=== PATIENT | female | born 1960 | race Hispanic/Latino ===

== ENCOUNTER 2018-02-23 09:33 | Observation (INO) | payer BC ==
[2018-02-23 09:39] VITALS: BMI 30.3
[2018-02-23] MEDS ORDERED: Nitroglycerin 2% Ointment Foilpak UD TOP STA (09:48)
--- NOTE | 2018-02-23 09:54 | ED PDOC ---
Arrival/HPI - General Chief Complaint: Chest Pain Time Seen by Provider: 02/23/18 09:39 Historian: Patient - History of Present Illness Narrative History of Present Illness (Text): 02/23/18 09:53 A 57 year old female, whose past medical history includes diabetes, hypertension , hyperlipidemia, CAD with stents (Dr. Arellano 2 years ago), presents to the emergency department complaining of intermittent chest pain for three days. Patient notes she is currently pain free. Reports to taking Aspirin last night. Patient saw her PMD in [facility], who sent her to the emergency department. Reports she quit smoking and drinking 4 years ago. Patient also reports shortness of breath, diaphoresis, nausea and dizziness but denies any other complaints at this time. Time/Duration: Other (3 days) Symptom Onset: Sudden Symptom Course: Unchanged Activities at Onset: Rest Context: Home Associated Symptoms (Text): 02/23/18 10:36 Three-day history of intermittent chest pain described as a heaviness with radiation to the left upper extremity and back. She is currently pain-free. Last on the order of hours. Seen by her PMD this morning and directed to the emergency department. History of coronary artery disease and stent placement. Also complained of diaphoresis nausea dyspnea and dizziness. Past Medical History - Provider Review Nursing Documentation Reviewed: Yes - Tetanus Immunization Tetanus Immunization: Unknown - Reproductive Menopause: Yes - Cardiac Hx Cardiac Disorders: Yes Hx Hypertension: Yes - Pulmonary Hx Respiratory Disorders: Yes Hx Bronchitis: Yes Hx Pneumonia: Yes - Neurological Hx Neurological Disorder: No - HEENT Hx HEENT Disorder: Yes Other/Comment: WEARS GLASSES - Renal Hx Renal Disorder: No - Endocrine/Metabolic Hx Endocrine Disorders: Yes Hx Diabetes Mellitus Type 2: Yes - Hematological/Oncological Hx Blood Disorders: No - Integumentary Hx Dermatological Disorder: No - Musculoskeletal/Rheumatological Hx Musculoskeletal Disorders: Yes Hx Arthritis: Yes (hands, joint pain) Hx Falls: No Other/Comment: TORN LIGAMENT LEFT KNEE - Gastrointestinal Hx Gastrointestinal Disorders: Yes (COLON RESECTION) Hx Crohn's Disease: Yes Hx Diverticulitis: Yes - Genitourinary/Gynecological Hx Genitourinary Disorders: Yes (1 MISCARRIAGE,1 2 CHILDREN, HYSTERECTOMY,C/S X 2) Other/Comment: hx of endometriosis that traveled outside the uterus, pt had a hysterectomy - Psychiatric Hx Psychophysiologic Disorder: No Hx Depression: No Hx Emotional Abuse: No Hx Physical Abuse: No Hx Substance Use: No - Surgical History Hx Cardiac Catheterization: Yes (2 STENTS 5-04-04 AND 16) Hx Coronary Stent: Yes (2) Hx Hysterectomy: Yes Hx Musculoskeletal Surgery: Yes (LEFT KNEE TORN LIGAMENT) - Anesthesia Hx Anesthesia: Yes Hx Anesthesia Reactions: No Hx Malignant Hyperthermia: No - Suicidal Assessment Feels Threatened In Home Enviroment: No Family/Social History - Physician Review Nursing Documentation Reviewed: Yes Family/Social History: No Known Family HX Smoking Status: Former Smoker Hx Alcohol Use: No Hx Substance Use: No Hx Substance Use Treatment: No Allergies/Home Meds Allergies/Adverse Reactions: Allergies black pepper Allergy (Intermediate, Uncoded 02/23/18 09:39) SWELLING Home Medications: Home Meds Medication Instructions Recorded Confirmed Aspirin [Aspir 81] 81 mg PO DAILY 03/14/13 02/23/18 Atorvastatin [Lipitor] 20 mg PO HS 03/22/15 02/23/18 Cholecalciferol (Vitamin D3) 600 mg PO DAILY 03/22/15 02/23/18 [Vitamin D3] Mesalamine [Asacol HD 800mg] 800 mg PO BID 03/22/15 02/23/18 Metformin HCl 1,000 mg PO BID 03/22/15 02/23/18 Metoprolol Succinate [Toprol XL] 25 mg PO DAILY 03/22/15 02/23/18 Pantoprazole [Protonix EC Tab] 40 mg PO DAILY 03/22/15 02/23/18 Pregabalin [Lyrica] 75 mg PO BID 03/22/15 02/23/18 GlipiZIDE [Glipizide] 5 mg PO DAILY 02/23/18 02/23/18 glyBURIDE [Micronase] 2.5 mg PO DAILY 02/23/18 02/23/18 traMADol [Ultram] 50 mg PO TID 02/23/18 02/23/18 Review of Systems - Physician Review All systems were reviewed & negative as marked: Yes - Review of Systems Constitutional: absent: Fatigue, Fevers Respiratory: SOB. absent: Cough Cardiovascular: Chest Pain. absent: Palpitations, Syncope Gastrointestinal: Nausea. absent: Abdominal Pain, Vomiting Neurological: Dizziness. absent: Headache, Focal Weakness Endocrine: Diaphoresis Physical Exam Vital Signs Reviewed: Yes Vital Signs Temp Pulse Resp BP Pulse Ox 02/23/18 13:44 87 18 149/83 97 02/23/18 10:26 98.2 F 79 18 162/87 H 99 Temperature: Afebrile Blood Pressure: Hypertensive Pulse: Regular Respiratory Rate: Normal Appearance: Positive for: Well-Appearing, Non-Toxic, Comfortable Pain Distress: None Mental Status: Positive for: Alert and Oriented X 3 - Systems Exam Head: Present: Atraumatic, Normocephalic Pupils: Present: PERRL Extroacular Muscles: Present: EOMI Conjunctiva: Present: Normal Ears: Present: NORMAL TM, Normal Canal. No: Erythema Mouth: Present: Moist Mucous Membranes Pharnyx: No: ERYTHEMA, EXUDATE, TONSILS ENLARGED Neck: Present: Normal Range of Motion Respiratory/Chest: Present: Clear to Auscultation, Good Air Exchange. No: Respiratory Distress, Accessory Muscle Use, Tender to Palpation Cardiovascular: Present: Regular Rate and Rhythm, Normal S1, S2. No: Murmurs Abdomen: No: Tenderness, Distention, Peritoneal Signs Back: Present: Normal Inspection Upper Extremity: Present: Normal Inspection. No: Cyanosis, Edema Lower Extremity: Present: Normal Inspection. No: Edema Neurological: Present: GCS=15, CN II-XII Intact, Speech Normal, Motor Func Grossly Intact Skin: Present: Warm, Dry, Normal Color. No: Rashes Psychiatric: Present: Alert, Oriented x 3, Normal Insight, Normal Concentration Medical Decision Making ED Course and Treatment: 02/23/18 09:52 Impression: A 57 year old female with chest pain, currently resolved. Plan: -- EKG -- Chest X-ray -- labs - -Nitroglycerin -- Reassess and disposition Prior Visits: Notes and results from previous visits were reviewed. Patient was last seen in the emergency department on 08/13/15 for evaluation of LLQ pain. Progress Notes: 02/23/18 10:29 Chest X-ray- Creator : Diaz Sahni MD IMPRESSION: No active disease. 02/23/18 10:38 EKG shows normal sinus rhythm rate approximately [address] or T-wave changes. 02/23/18 13:47 Dr. Julio saw the patient in the emergency department. - Lab Interpretations Lab Results: 02/23/18 09:45 02/23/18 09:45 Lab Results 02/23/18 09:45: Sodium 136, Potassium 4.4, Chloride 102, Carbon Dioxide 25, Anion Gap 13, BUN 16, Creatinine 0.5 L, Est GFR ( Amer) > 60, Est GFR ( Non-Af Amer) > 60, Random Glucose 283 H, Calcium 9.7, Total Bilirubin 0.7, AST 50 H, ALT 75 H, Alkaline Phosphatase 87, Lactate Dehydrogenase 467, Total Creatine Kinase 47, Troponin I < 0.01, NT-Pro-B Natriuret Pep 68.0, Total Protein 7.0, Albumin 4.0, Globulin 3.0, Albumin/Globulin Ratio 1.3 02/23/18 09:45: PT 10.6, INR 0.92 L, APTT 23.2 L 02/23/18 09:45: WBC 6.8, RBC 4.07, Hgb 14.9, Hct 36.5, MCV 89.7, MCH 36.6 H, MCHC 40.8 H, RDW 12.9, Plt Count 177, MPV 11.2 H, Gran % 61.7, Lymph % (Auto) 31.9, [place] % (Auto) 4.7, Eos % (Auto) 1.3 L, Baso % (Auto) 0.4, Gran # 4.22, Lymph # (Auto) 2.2, [place] # (Auto) 0.3, Eos # (Auto) 0.1, Baso # (Auto) 0.03 I have reviewed the lab results: Yes - RAD Interpretation Radiology Orders: 02/23/18 09:48 CHEST PORTABLE [RAD] Stat - EKG Interpretation Interpreted by ED Physician: Yes Type: 12 lead EKG - Medication Orders Current Medication Orders: Aspirin (Ecotrin) 81 mg PO DAILY MANJULA Atorvastatin Calcium (Lipitor) 20 mg PO HS MANJULA Glyburide (Micronase) 2.5 mg PO DAILY MANJULA Mesalamine (Asacol Hd 800mg) 800 mg PO BID MANJULA Metformin HCl (Glucophage) 1,000 mg PO BID MANJULA Metoprolol Succinate (Toprol Xl) 25 mg PO DAILY MANJULA Pantoprazole Sodium (Protonix Ec Tab) 40 mg PO DAILY MANJULA Pregabalin (Lyrica) 75 mg PO BID MANJULA Tramadol HCl (Ultram) 50 mg PO TID PRN PRN Reason: Pain, moderate (4-7) Vitamin D (Vitamin D 400 Intl Units Tab) 600 intlu PO DAILY MANJULA Discontinued Medications Nitroglycerin (Nitro-Bid 2% Oint) 1 ea TOP STAT STA Stop: 02/23/18 09:49 Last Admin: 02/23/18 10:22 Dose: 1 ea - Scribe Statement The provider has reviewed the documentation as recorded by the Scribe [place] Provider Scribe Attestation: All medical record entries made by the Scribe were at my direction and personally dictated by me. I have reviewed the chart and agree that the record accurately reflects my personal performance of the history, physical exam, medical decision making, and the department course for this patient. I have also personally directed, reviewed, and agree with the discharge instructions and disposition. Disposition/Present on Arrival - Present on Arrival Any Indicators Present on Arrival: No History of DVT/PE: No History of Uncontrolled Diabetes: No Urinary Catheter: No History of Decub. Ulcer: No History Surgical Site Infection Following: None - Disposition Have Diagnosis and Disposition been Completed?: Yes Diagnosis: Chest pain Disposition: HOSPITALIZED Disposition Time: 11:10 Patient Plan: Observation, Telemetry Patient Problems: Current Active Problems Problem Status Onset Chest pain Acute Condition: GOOD
[2018-02-23 09:59] LABS: BASO # 0.03 K/mm3 (0.0-2.0); BASO % 0.4 % (0.0-3.0); EOS # 0.1 (0.0-0.7); EOS % 1.3 % (1.5-5.0); GRAN # 4.22 (1.4-6.5); GRAN % 61.7 % (50.0-68.0); HEMOGLOBIN 14.9 g/dL (12.0-16.0); LYMPH # 2.2 (1.2-3.4); LYMPH % 31.9 % (22.0-35.0); MEAN CELL VOLUME 89.7 fl (80.0-105.0); MEAN CORPUSCULAR HEMOGLOBIN 36.6 pg (25.0-35.0); MEAN CORPUSCULAR HGB CONC 40.8 g/dl (31.0-37.0); MEAN PLATELET VOLUME 11.2 fl (7.0-11.0); MONO # 0.3 (0.1-0.6); MONO % 4.7 % (1.0-6.0); RBC 4.07 10^6/uL (3.5-6.1); RED CELL DISTRIBUTION WIDTH 12.9 % (11.5-14.5); WHITE BLOOD COUNT 6.8 10^3/ul (4.5-11.0)
[2018-02-23 10:09] LABS: INR 0.92 (0.93-1.08); PARTIAL THROMBOPLASTIN TIME 23.2 Seconds (25.1-36.5); PROTHROMBIN TIME 10.6 SECONDS (9.4-12.5)
[2018-02-23 10:11] LABS: ALB/GLOB RATIO 1.3 (1.1-1.8); ALT/SGPT 75 U/L (7-56); AST/SGOT 50 U/L (14-36); BLOOD UREA NITROGEN 16 mg/dL (7-21); CALCIUM 9.7 mg/dL (8.4-10.5); GFR AFRICAN-AMERICAN > 60; GFR NON-AFRICAN AMERICAN > 60
[2018-02-23 10:23] LABS: TROPONIN I < 0.01 ng/mL
--- NOTE | 2018-02-23 10:28 | RAD ---
HISTORY: cp COMPARISON: 08/13/2015 FINDINGS: LUNGS: No active pulmonary disease. PLEURA: No significant pleural effusion identified, no pneumothorax apparent. CARDIOVASCULAR: Normal. OSSEOUS STRUCTURES: No significant abnormalities. VISUALIZED UPPER ABDOMEN: Normal. OTHER FINDINGS: None. IMPRESSION: No active disease.
--- NOTE | 2018-02-23 13:59 | HP ---
HISTORY OF PRESENT ILLNESS: I was called down to the emergency room to admit Jodi Hunt into observation. She came in to the emergency room complaining of intermittent chest pain for 3 days. At this time, she is pain free. She also said the left arm had been very cold and now it is better again. She is a 57-year-old female with chest pain for 3 days, but now it is gone. She had left arm that was cold, but now it is better. She has a past medical history of diabetes, hypertension, high cholesterol, CAD with stents from Dr. Arellano 2 years ago. She took an aspirin last night and she was sent here by a medical doctor. There is no shortness of breath. No diaphoresis. No nausea. No dizziness. At this time, when I am seeing her now, she feels back to normal. There was a sudden change when it happened. She also said there was heaviness in her chest radiating to the left upper arm and back, but now that is gone. She had bronchitis and pneumonias in the past. She has hypertension. She wears glasses. She has diabetes. She has arthritis in the hands and knees. She had a torn ligament in the left knee. She had colon resection. She had Crohn's disease, diverticulitis in the past. She had a miscarriage, 1 , 2 children, hysterectomy, history of endometriosis. She had a hysterectomy. Two coronary stents, left knee torn ligament. FAMILY HISTORY: No known family history. SOCIAL HISTORY: A former smoker. No alcohol. No drugs. ALLERGIES: SHE IS ALLERGIC TO BLACK PEPPER. MEDICATIONS: She takes aspirin, Lipitor, vitamin D3, Asacol, metformin, Toprol, Protonix, Lyrica, glipizide, Micronase and Ultram. REVIEW OF SYSTEMS: No acute changes at that time. No fatigue. No fevers at this time. She was short of breath, but not now. No cough. There was chest pain, left sided and pressure, but not now. No palpitations. Not dizzy. There was some nauseousness, but not now that faded. She has no abdominal pain, constipation or vomiting or diarrhea. There was dizziness, but not now. There was no headache. No focal weakness at all pass. She did have some sweating when this happened 2 days ago, but not anymore. PHYSICAL EXAMINATION: VITAL SIGNS: She has a 98.2 temp, 79 pulse, 18 respiratory rate, 162/87 blood pressure, 99% O2 sat on room air. GENERAL: She is comfortable, well appearing, nontoxic, comfortable in bed, telling me her story. She is alert and oriented x3. HEENT: Head is atraumatic, normocephalic. Extraocular muscles are intact. Pupils are equal, reactive to light. Throat is moist. The canals of the ears were normal. Mucous membranes are moist. NECK: Supple. LUNGS: Clear to auscultation. HEART: Regular rate. Normal S1 and S2. ABDOMEN: Soft, nontender. Positive bowel sounds. EXTREMITIES: Have no edema. NEUROLOGIC: GCS of 15. Cranial nerves II through XII grossly intact. Speech is normal. SKIN: Warm and dry. PSYCHIATRIC: Alert and oriented x3. LYMPHATICS: No palpable lymphadenopathy or thyroid that is not midline. LABORATORY DATA: She had multiple tests. She had a 136 sodium, potassium 4.4, BUN 16, creatinine 0.5, GFR is greater than 60, sugar is 283, calcium is 9.7, total bili is 0.7, AST is 50, ALT is 75, alk phos is 87, lactate dehydrogenase is 467, total creatine kinase is 47, troponin I is less than 0.01, BNP is 68, total protein 7, albumin is 4. White count is 6.8, hemoglobin 14.9, hematocrit 36.5, platelets are 177. INR is 0.92. The chest x-ray was normal. IMPRESSION: She will have a consult with Dr. Lang, the supervisor marble. She will be put back on her medications. We will check her troponins x2 more. We will get her into observation. Jdoi Hunt who is here for chest pain and left arm change in temperature and I ordered ultrasound and arterial Dopplers of the left arm. Rodney Julio DO
[2018-02-23] MEDS: Mesalamine 800 mg DR Tab PO SCH (17:41)
--- NOTE | 2018-02-23 17:43 | US ---
PROCEDURE: Upper extremity FIONA/PVR exam HISTORY: Peripheral vascular disease with pain. Diabetes. Previous smoker PHYSICIAN(S): Ryan Shane MD. FINDINGS: The resting WBI's are normal: right, 1.09and left, 1.15. The upper arm, forearm, and wrist PVR waveforms are normal and symmetric. No significant segmental gradients are demonstrated. . IMPRESSION: 1. Normal WBI and PVR examination at rest.
--- NOTE | 2018-02-23 17:44 | US ---
PROCEDURE: Left upper extremity venous ultrasound HISTORY: Arm pain and swelling. Evaluate for deep venous thrombosis. PHYSICIAN(S): Ryan Shane MD. FINDINGS: The visualized leftinternal jugular vein is sonographically normal and compressible. No evidence of obstruction or thrombus is seen. The visualized segments of the left subclavian vein are patent with normal waveforms. No sonographic evidence of obstruction or thrombosis is seen. The visualized deep venous system of the proximal leftupper extremity is sonographically normal and compressible. IMPRESSION: 1. No sonographic evidence for deep venous thrombosis in the visualized segments of the left upper extremity.
[2018-02-23 18:58] VITALS: O2SAT 95
--- NOTE | 2018-02-23 19:20 | CARD ---
APPROVED REPORT EKG Measurement Heart [id number] CT [id number] <Conclusion> Normal sinus rhythm Minimal voltage criteria for LVH, may be normal variant ST abnormality, possible digitalis effect Abnormal ECG
[2018-02-23] MEDS ORDERED: Pneumococcal 23-Valent Vaccine IM ONE (21:24)
[2018-02-24 06:11] LABS: HEMOGLOBIN 13.5 g/dL (12.0-16.0); MEAN CORPUSCULAR HGB CONC 35.5 g/dl (31.0-37.0); MEAN PLATELET VOLUME 11.1 fl (7.0-11.0); RBC 4.22 10^6/uL (3.5-6.1); RED CELL DISTRIBUTION WIDTH 12.9 % (11.5-14.5); WHITE BLOOD COUNT 6.7 10^3/ul (4.5-11.0)
[2018-02-24 06:44] VITALS: RESP 18
[2018-02-24 06:56] LABS: ALB/GLOB RATIO 1.1 (1.1-1.8); ALBUMIN 3.5 g/dL (3.0-4.8); ALT/SGPT 69 U/L (7-56); AST/SGOT 57 U/L (14-36); BLOOD UREA NITROGEN 15 mg/dL (7-21); CALCIUM 9.1 mg/dL (8.4-10.5); GFR AFRICAN-AMERICAN > 60; GFR NON-AFRICAN AMERICAN > 60
[2018-02-24] MEDS: Mesalamine 800 mg DR Tab PO SCH ×2 (09:41→09:43)
[2018-02-24] MEDS ORDERED: Metoprolol Succinate 25 mg XL Tab PO SCH (10:00)
[2018-02-24] MEDS ORDERED: Cholecalciferol 400 Intl Units Tab PO SCH (10:00)
[2018-02-24] MEDS ORDERED: Pantoprazole 40 mg EC Tab PO SCH (10:00)
[2018-02-24 12:40] VITALS: BP 139/85; PULSE 72; TEMP 98.5
--- NOTE | 2018-02-25 00:27 | CON ---
DATE: 02/24/2018 REASON FOR CONSULTATION: Chest pain. REQUESTING PHYSICIAN: Dr. Julio. HISTORY: This is a 57-year-old woman with known coronary disease status post prior multivessel PCI, admitted with chest and left arm discomfort. She states that her left arm pain begins at first and it is fairly intense. She cannot identify any precipitating or relieving factors. This is also associated with retrosternal chest discomfort with some dyspnea. Initial cardiac enzymes were negative. An electrocardiogram was unremarkable. She has known coronary disease and underwent catheterization and PCI for LAD and left circumflex artery in 2012. She has not had a recent followup stress test performed. She does have a history of hypertension, diabetes and hyperlipidemia. She also has a history of chronic Crohn disease and diverticulitis in the past. She has undergone prior hysterectomy. MEDICATIONS: Her current medications include mesalamine, Ecotrin, Glucophage, Lipitor, glyburide, Protonix, metoprolol and Ultram p.r.n. ALLERGIES : NO DRUG ALLERGIES NOTED. SOCIAL HISTORY: She is a former smoker. She denies alcohol use. FAMILY HISTORY: Both parents were from age-related illness. REVIEW OF SYSTEMS: A 10-point review of systems was unremarkable. PHYSICAL EXAMINATION: GENERAL: She is a middle-aged woman, appears somewhat anxious. VITAL SIGNS: Her blood pressure is 122/78 with pulse of 80 in sinus, respirations 16. She is afebrile. HEENT: Normocephalic, atraumatic. NECK: Supple. No JVD noted. CHEST: Few scattered rhonchi heard. HEART: PMI displaced laterally. No pathological gallops noted. ABDOMEN: Soft and nontender with bowel sounds. EXTREMITIES: No clubbing, cyanosis, or edema. SKIN: Warm and dry. PSYCHIATRIC: Normal mood and affect. NEUROLOGIC: Alert and oriented x3. No gross motor or sensory is appreciable. DIAGNOSTIC DATA: Potassium 4.4, BUN and creatinine 15 and 0.6, glucose is 252. White count 6.7, hemoglobin and hematocrit 13.5 and 38.0 with platelet count of 194,000. AST and ALT are mildly elevated at 57 and 69. Three sets of cardiac enzymes are negative. IMPRESSION: 1. Chest and arm discomfort somewhat suggestive of angina, however, her arm pain may be secondary to a cervical radiculopathy. 2. Known coronary disease status post multivessel percutaneous coronary intervention with no recent ischemic evaluation. 3. Multiple cardiac risk factors given hypertension, diabetes, hyperlipidemia and remote tobacco abuse. RECOMMENDATIONS: She is currently pain free and discharge home at this time would be reasonable. An outpatient stress test will be arranged. If she has recurrent pain, she was instructed to return to the emergency room. The need for continue risk factor control is advised including better control over diabetes. Thank you for this consultation. Kashmir Arellano MD
--- NOTE | 2018-02-25 04:01 | DS ---
HISTORY OF PRESENT ILLNESS: She slept well last night. No acute complaints. The left arm is also better. No more numbness or tingling or coldness in the left arm. MEDICATIONS: She is currently on Asacol, Ecotrin, Glucophage, Lipitor, Lyrica, Micronase, Nitrobid as needed, Protonix, Toprol, Ultram, and vitamin D. PHYSICAL EXAMINATION: GENERAL: She is alert. She is comfortable. She slept well. She is looking for her breakfast. VITAL SIGNS: She has a 97.9 temperature, 74 pulse, 96/61 blood pressure, which is a little bit low, was as high as 149/83, also this morning had 18 respiratory rate, 95% O2 sat on room air. HEENT: Head is atraumatic, normocephalic. HEART: Regular rate. LUNGS: Decreased breath sounds, but clear. ABDOMEN: Soft. EXTREMITIES: No edema. LABORATORY DATA: She has 138 sodium, potassium 4.4, BUN 16, creatinine 0.6, GFR is greater than 60, sugar is 252. She is on medication for diabetes, we will adjust that and make it little bit tighter. Calcium is 9.1, total bili is 0.3, AST is 57, ALT is 69, alk phos 65. The troponin I was less than 0.01, second one was less than 0.01, waiting for the third. Total protein is 6.6. The ultrasound of the upper extremity were normal, I did not tingling. She is already on metformin and glyburide. I will increase the glyburide as the blood sugar is in the mid 200s. I am hoping to discharge her later today after Cardiology sees her and hopefully the third troponin will be negative and hopefully repeat patient testing if we need to and hopefully they will let me know their plan. She came in for chest pain, left arm tingling, history of diabetes, and hypertension. Rodney Julio DO [facility]
== END 2018-02-24 14:44 | disposition home or self-care (01) ==
LOC: ED 09:33 → ERH 11:03 → 2RNO 14:31
PROVIDERS: ADMIT Family Medicine; ATTEND Family Medicine
DX: I25.119 Atherosclerotic heart disease of native coronary artery with unspecified angina pectoris (principal); M54.12 Radiculopathy, cervical region; I10 Essential (primary) hypertension; E11.9 Type 2 diabetes mellitus without complications; E78.00 Pure hypercholesterolemia, unspecified; E78.5 Hyperlipidemia, unspecified; K50.90 Crohn's disease, unspecified, without complications; Z95.5 Presence of coronary angioplasty implant and graft; M19.042 Primary osteoarthritis, left hand; M19.041 Primary osteoarthritis, right hand; Z79.82 Long term (current) use of aspirin; Z87.01 Personal history of pneumonia (recurrent); Z87.891 Personal history of nicotine dependence; Z90.710 Acquired absence of both cervix and uterus
CPT/HCPCS: 36415; 71045; 80053; 82550; 82948; 83615; 83880; 84484; 85025; 85027; 85610; 85730; 93005; 93923; 93971; 99285; G0378